=== PATIENT | male | born 1945 | race Hispanic/Latino ===

== ENCOUNTER 2018-03-06 16:49 | Emergency (ER) | payer OTHER ==
--- NOTE | 2018-03-06 18:08 | RAD REPORT ---
EXAM DESCRIPTION: CT - Head Brain Wo Cont - 03/06/2018 5:56 pm CLINICAL HISTORY: Headache, hypertension, declining state COMPARISON: None. TECHNIQUE: Axial 5 mm thick images of the head were obtained without IV contrast. All CT scans are performed using dose optimization technique as appropriate and may include automated exposure control or mA/KV adjustment according to patient size. FINDINGS: No intracranial hemorrhage, mass, edema or shift of mid-line structures. No acute cortical based infarction. No cortical edema or sulcal effacement. Arterial and physiologic calcifications ar e present. Moderate atrophy and chronic ischemic changes are present. No abnormal extra-axial fluid c ollections. Ventricles are in proportion to volume loss. Mastoid air cells and visualized portions of the paranasal sinuses are clear. No acute bony findings. IMPRESSION: No hemorrhage or other acute intracranial finding. Up to moderate severity atrophy and chronic ischemic change. Ventricles are in proportion.
[2018-03-06] MEDS ORDERED: ASPIRIN 81 MG CHEWABLE TABLET ONE (18:46)
[2018-03-06 18:47] LABS: Bicarbonate 27 mEq/L (21-31); Glucose Level 158 mg/dL (65-120); Potassium 3.8 mEq/L (3.6-5.0); Sodium Level 137 mEq/L (135-145)
[2018-03-06 18:53] LABS: ALT/SGPT 24 IU/L (10-60); AST/SGOT 30 IU/L (10-42); Albumin 3.8 g/dL (3.2-5.5); Alkaline Phosphatase 51 IU/L (42-121); BUN Blood Urea Nitrogen 13 mg/dL (6-20); Bilirubin Direct 0.1 mg/dL (0-0.2); Bilirubin Total 0.5 mg/dL (0.3-1.2); Creatine Phosphokinase 210 IU/L (22-269); Magnesium 1.7 mg/dL (1.8-2.5); Protein, Total 7.3 g/dL (6.0-8.3)
[2018-03-06 18:56] LABS: CKMB Creatine Kinase MB 3.7 ng/ml (0.3-4.0)
[2018-03-06 18:57] LABS: Absolute Lymphocytes (CBC) 0.9 K/uL (0.7-4.9); Absolute Monocytes 0.4 K/uL (0.1-1.3); Absolute Neutrophil 6.8 K/uL (1.8-8.0); Basophils % 0.1 % (0-1.3); Eosinophils % 0.1 % (0-4.4); Hematocrit 46.4 % (39.6-49.0); Lymphocytes % 10.6 % (15.3-44.8); MCH 30.2 pg (27.0-35.0); MCV 92.2 fL (80-100); MPV 10.9 fL (7.6-11.3); Monocytes % 5.4 % (3.3-12.3); RBC Red Blood Cell Count 5.04 M/uL (4.33-5.43)
[2018-03-06 18:59] LABS: Protime INR 0.99
[2018-03-06] MEDS ORDERED: cloNIDine HCl 0.1 MG TAB ONE (19:09)
[2018-03-06] MEDS ORDERED: NA CHLORIDE 0.9% 500 ML ONE (19:09)
[2018-03-06] MEDS ORDERED: NA CHLORIDE 0.9% 1,000 ML ONE (19:09)
--- NOTE | 2018-03-06 20:04 | RAD REPORT ---
EXAM DESCRIPTION: RAD - Chest Single View - 03/06/2018 6:04 pm CLINICAL HISTORY: Abdominal pain, nausea, vomiting, shortness of breath COMPARISON: None. TECHNIQUE: AP portable chest image was obtained 1752 hour . FINDINGS: Lung volumes are low. Interstitial markings are prominent. Baseline the patient is unknown . No mass, consolidation or significant failure. Trachea is midline. Heart and vasculature are normal . No measurable pleural effusion and no pneumothorax. No gross bony abnormality seen. No acute aortic findings suspected. IMPRESSION: Prominent interstitial markings without focal process and without significant failure or volume overload. Minimal or mild failure or volume overload could be masked.
[2018-03-06 20:30] LABS: Urine Blood NEGATIVE (NEG); Urine Glucose NEGATIVE (NEG); Urine Protein NEGATIVE (NEG)
--- NOTE | 2018-03-06 21:17 | ER ---
Nurse's Notes [facility] Name: Gonzalez Kirkpatrick Age: 73 yrs Sex: Male : 1945 Arrival Date: 03/06/2018 Time: 16:54 Bed 14 Private MD: None, None Diagnosis: Hypertensive heart disease;Atrioventricular block, second degree Presentation: 03/06 16:56 Presenting complaint: Patient states: Nausea, vomiting decreased energy since Sunday. aj Transition of care: patient was not received from another setting of care. Onset of symptoms was March 03, 2018. Risk Assessment: Do you want to hurt yourself or someone else? Patient reports no desire to harm self or others. Care prior to arrival: None. 16:56 Method Of Arrival: Ambulatory 16:56 Acuity: GOLDY 3 19:15 Initial Sepsis Screen: Does the patient meet any 2 criteria? No. Patient's initial ea sepsis screen is negative. Does the patient have a suspected source of infection? No. Patient's initial sepsis screen is negative. Triage Assessment: 16:57 General: Appears in no apparent distress. comfortable, Behavior is calm, cooperative, aj appropriate for age. Pain: Denies pain. Neuro: Level of Consciousness is awake, alert, obeys commands, Oriented to person, place, time, situation, Appropriate for age. Neuro: Reports headache. Respiratory: Reports cough that is Airway is patent Respiratory effort is even, unlabored, Respiratory pattern is regular, symmetrical. Derm: Skin is intact, is healthy with good turgor, Skin is pink, warm \T\ dry. normal. Historical: - Allergies: 16:57 No Known Allergies; aj - Home Meds: 16:57 None [Active]; aj - PMHx: 16:57 None; aj - PSHx: 16:57 None; aj - Immunization history:: Adult Immunizations up to date. - Social history:: Smoking status: Patient/guardian denies using tobacco. - Ebola Screening: : Patient negative for fever greater than or equal to 101.5 degrees Fahrenheit, and additional compatible Ebola Virus Disease symptoms Patient denies exposure to infectious person Patient denies travel to an Ebola-affected area in the 21 days before illness onset No symptoms or risks identified at this time. Screenin:28 Abuse screen: Denies threats or abuse. Denies injuries from another. Nutritional jl7 screening: No deficits noted. Tuberculosis screening: No symptoms or risk factors identified. Fall Risk IV access (20 points). Total Chapman Fall Scale indicates No Risk (0-24 pts). Assessment: 17:40 General: Appears in no apparent distress. uncomfortable, Behavior is calm, cooperative, jl7 appropriate for age. Pain: Denies pain. Neuro: Level of Consciousness is awake, alert, obeys commands, Oriented to person, place, time, situation. Cardiovascular: Heart tones S1 S2 present Patient's skin is warm and dry. Respiratory: Airway is patent Respiratory effort is even, unlabored, Respiratory pattern is regular, symmetrical. GI: Abdomen is round non-distended. : No signs and/or symptoms were reported regarding the genitourinary system. EENT: No signs and/or symptoms were reported regarding the EENT system. Derm: Skin is pink, warm \T\ dry. Musculoskeletal: No signs and/or symptoms reported regarding the musculoskeletal system. 19:25 General: Appears in no apparent distress. Behavior is calm, cooperative, appropriate ea for age. Pain: Denies pain. Neuro: Level of Consciousness is awake, alert, obeys commands, Oriented to person, place, time, situation. Cardiovascular: Heart tones. Cardiovascular: Patient's skin is warm and dry. Respiratory: Airway is patent Respiratory effort is even, unlabored, Respiratory pattern is regular, symmetrical, Breath sounds are clear bilaterally. GI: Abdomen is round non-distended, Bowel sounds present X 4 quads. : No signs and/or symptoms were reported regarding the genitourinary system. EENT: No signs and/or symptoms were reported regarding the EENT system. Derm: Skin is pink, warm \T\ dry. Musculoskeletal: No signs and/or symptoms reported regarding the musculoskeletal system. 20:19 Reassessment: Patient and/or family updated on plan of care and expected duration. Pain ea level reassessed. Patient is alert, oriented x 3, equal unlabored respirations, skin warm/dry/pink. 20:43 Reassessment: Patient and/or family updated on plan of care and expected duration. Pain ea level reassessed. Provider at bedside updating pt on plan of care. 21:23 Reassessment: Patient and/or family updated on plan of care and expected duration. Pain ea level reassessed. Patient is alert, oriented x 3, equal unlabored respirations, skin warm/dry/pink. Family at bedside. 21:54 Reassessment: Report called to Tashia RUSSELL at [facility]. ea 22:19 Reassessment: Patient and/or family updated on plan of care and expected duration. Pain ea level reassessed. Patient is alert, oriented x 3, equal unlabored respirations, skin warm/dry/pink. [facility] at facility for transfer. Vital Signs: 16:57 BP 199 / 99; Pulse 67; Resp 19; Temp 98.0; Pulse Ox 98% on R/A; Weight 70.31 kg; Height aj 5 ft. 5 in. (165.10 cm); 18:27 BP 175 / 86; Pulse 59; Resp 16; Pulse Ox 96% ; Pain 0/10; jl7 18:44 BP 169 / 88 Supine; Pulse 58; Resp 15; Pulse Ox 97% on R/A; mh5 18:46 BP 196 / 104 Sitting; Pulse 67; Resp 16; Pulse Ox 96% on R/A; mh5 18:48 BP 208 / 98 Standing; Pulse 70; Resp 19; Pulse Ox 97% on R/A; mh5 19:18 BP 182 / 84; Pulse 59; Resp 18; Pulse Ox 97% ; Pain 0/10; ea 19:30 BP 190 / 80 (man/); Pulse 62; Resp 18 S; Pain 0/10; ea 20:15 BP 169 / 71; Pulse 54; Resp 18; Pulse Ox 97% on R/A; Pain 0/10; ea 20:35 BP 142 / 67; Pulse 53; Resp 18; Pulse Ox 99% on R/A; ea 21:00 BP 135 / 87; Pulse 59; Resp 18; Pulse Ox 97% on R/A; Pain 0/10; ea 22:17 BP 164 / 85; Pulse 58; Resp 18; Temp 98(O); Pulse Ox 97% on R/A; Pain 0/10; ea 16:57 Body Mass Index 25.79 (70.31 kg, 165.10 cm) aj ED Course: 16:54 Patient arrived in ED. mr 16:55 None, None is Private Physician. mr 16:57 Triage completed. aj 16:57 Arm band placed on left wrist. Patient placed in an exam room. aj 17:25 Jose Brito PA is PHCP. cp 17:25 Robin Jackson MD is Attending Physician. cp 17:34 Michel Sandoval, RN is Primary Nurse. jl7 17:[address] vm2 17:53 EKG done, by technology architect. reviewed by Jose LEIGH. 3 17:56 CT completed. Patient tolerated procedure well. Patient moved to radiology. vm2 17:56 CT Head Brain wo Cont In Process Unspecified. EDMS 18:01 X-ray completed. Patient tolerated procedure well. Patient moved back from radiology. jb2 18:02 XRAY Chest (1 view) In Process Unspecified. EDMS 18:03 Attending Physician role handed off by Robin Jackson MD cp 18:03 Jose Vincent MD is Attending Physician. cp 18:26 Initial lab(s) drawn, by sc, sent to lab. Inserted saline lock: 22 gauge in right mh5 antecubital area, using aseptic technique. Blood collected. 18:27 Patient has correct armband on for positive identification. Placed in gown. Bed in low mh5 position. Call light in reach. Side rails up X2. Adult w/ patient. Warm blanket given. vehicle monitor technician on. Pulse ox on. NIBP on. 18:28 No provider procedures requiring assistance completed. jl7 19:14 CBC with Diff Sent. [facility] 22:20 Patient transferred, IV remains in place. ea 22:21 Primary Nurse role handed off by Michel Sandoval, RN rg2 22:28 Tanika Gonzalez, RN is Primary Nurse. ea Administered Medications: 18:50 Drug: Aspirin Chewable Tablet 81 mg Route: PO; jl7 19:00 Follow up: Response: No adverse reaction ea 19:30 Drug: cloNIDine 0.2 mg Route: PO; ea 20:00 Follow up: Response: No adverse reaction; Blood pressure is lowered ea 19:30 Drug: NS 0.9% 500 ml Route: IV; Rate: bolus; Site: right antecubital; ea 20:38 Follow up: Response: No adverse reaction; IV Status: Completed infusion; IV Intake: ea 500ml 19:30 Drug: NS 0.9% 1000 ml Route: IV; Rate: 75 ml/hr; Site: right antecubital; ea 22:15 Follow up: IV Status: Infusion continued upon transfer ea Intake: 20:38 IV: 500ml; Total: 500ml. ea Outcome: 21:17 ER care complete, transfer ordered by . cp 22:19 Transferred by ground EMS to [facility], [facility], Transfer form completed. ea 22:19 Condition: stable 22:29 Patient left the ED. ea Signatures: Dispatcher [employer] EDMS Helen Restrepo rg2 Loree Sin, RN Beba Graf NghiateddyAguilra jb2 Jose Brito PA PA cp Martinez, Maria [facility] Michel Sandoval, RN RN jl7 Michelle Shetty 2 Tanika Gonzalez RN Isatu Flower ea 3
--- NOTE | 2018-03-06 21:17 | EDPHYS ---
Physician Documentation [facility] Name: Gonzalez Kirkpatrick Age: 73 yrs Sex: Male : 1945 Arrival Date: 03/06/2018 Time: 16:54 Bed 14 Private MD: None, None ED Physician Jose Vincent HPI: 03/06 17:45 This 73 yrs old Male presents to ER via Ambulatory with complaints of cp Dehydration. 17:45 The patient's problem is reported as weakness, that is generalized. cp 17:45 Onset: The symptoms/episode began/occurred 3 day(s) ago. Duration: The episode is cp continuous. Associated signs and symptoms: Pertinent positives: nausea, intermittent vomiting, Pertinent negatives: abdominal pain, blurred vision, chest pain, shortness of breath. Severity of symptoms: in the emergency department the symptoms are unchanged despite home interventions. Patient's baseline: Neuro: alert and fully oriented, Motor: no deficits, Ambulation: walks without assistance, Speech: normal. Son used as manager strategic marketing, reports patient complains of feeling "dehydrated". Historical: - Allergies: 16:57 No Known Allergies; aj - Home Meds: 16:57 None [Active]; aj - PMHx: 16:57 None; aj - PSHx: 16:57 None; aj - Immunization history:: Adult Immunizations up to date. - Social history:: Smoking status: Patient/guardian denies using tobacco. - Ebola Screening: : Patient negative for fever greater than or equal to 101.5 degrees Fahrenheit, and additional compatible Ebola Virus Disease symptoms Patient denies exposure to infectious person Patient denies travel to an Ebola-affected area in the 21 days before illness onset No symptoms or risks identified at this time. ROS: 17:50 Constitutional: Negative for body aches, chills, fever, poor PO intake. cp 17:50 Eyes: Negative for injury, pain, redness, and discharge. cp 17:50 ENT: Negative for drainage from ear(s), ear pain, sore throat, difficulty swallowing, difficulty handling secretions. 17:50 Cardiovascular: Negative for chest pain, edema, palpitations. 17:50 Respiratory: Positive for cough, with no reported sputum, Negative for shortness of breath, wheezing. 17:50 Abdomen/GI: Positive for nausea, intermittent vomiting, Negative for abdominal pain, anorexia, black/tarry stool, rectal bleeding. Exam: 17:57 Constitutional: The patient appears in no acute distress, alert, awake, cp non-diaphoretic, non-toxic, well developed, well nourished. 17:57 Head/Face: Normocephalic, atraumatic. Eyes: Pupils equal round and reactive to light, cp extra-ocular motions intact. Lids and lashes normal. Conjunctiva and sclera are non-icteric and not injected. Cornea within normal limits. Periorbital areas with no swelling, redness, or edema. ENT: Nares patent. No nasal discharge, no septal abnormalities noted. Tympanic membranes are normal and external auditory canals are clear. Oropharynx with no redness, swelling, or masses, exudates, or evidence of obstruction, uvula midline. Mucous membranes moist. Neck: Trachea midline, no thyromegaly or masses palpated, and no cervical lymphadenopathy. Supple, full range of motion without nuchal rigidity, or vertebral point tenderness. No Meningismus. Chest/axilla: Normal chest wall appearance and motion. Nontender with no deformity. No lesions are appreciated. 17:57 Cardiovascular: Rate: normal, Rhythm: regular, Pulses: Pulses are 2+ in right radial artery and left radial artery. Edema: is not appreciated, JVD: is not appreciated. 17:57 Respiratory: the patient does not display signs of respiratory distress, Respirations: normal, no use of accessory muscles, no retractions, no splinting, no tachypnea, labored breathing, is not present, Breath sounds: are clear throughout, no decreased breath sounds, no stridor, no wheezing. 17:57 Abdomen/GI: Inspection: abdomen appears normal, Bowel sounds: active, all quadrants, Palpation: abdomen is soft and non-tender, in all quadrants, rebound tenderness, is not appreciated, voluntary guarding, is not appreciated, involuntary guarding, is not appreciated. 17:57 Back: pain, is absent, ROM is normal. 17:57 Skin: cellulitis, is not appreciated, no rash present. 17:57 Neuro: Orientation: to person, place \\T\\ time. Mentation: lucid, able to follow commands, Cerebellar function: Romberg testing is negative, normal finger to nose testing, Motor: moves all fours, strength is normal, Sensation: no obvious gross deficits, Gait: is steady. 18:35 Radiologist reports: no acute findings cp Vital Signs: 16:57 BP 199 / 99; Pulse 67; Resp 19; Temp 98.0; Pulse Ox 98% on R/A; Weight 70.31 kg; Height aj 5 ft. 5 in. (165.10 cm); 18:27 BP 175 / 86; Pulse 59; Resp 16; Pulse Ox 96% ; Pain 0/10; jl7 18:44 BP 169 / 88 Supine; Pulse 58; Resp 15; Pulse Ox 97% on R/A; mh5 18:46 BP 196 / 104 Sitting; Pulse 67; Resp 16; Pulse Ox 96% on R/A; mh5 18:48 BP 208 / 98 Standing; Pulse 70; Resp 19; Pulse Ox 97% on R/A; mh5 19:18 BP 182 / 84; Pulse 59; Resp 18; Pulse Ox 97% ; Pain 0/10; ea 19:30 BP 190 / 80 (man/); Pulse 62; Resp 18 S; Pain 0/10; ea 20:15 BP 169 / 71; Pulse 54; Resp 18; Pulse Ox 97% on R/A; Pain 0/10; ea 20:35 BP 142 / 67; Pulse 53; Resp 18; Pulse Ox 99% on R/A; ea 21:00 BP 135 / 87; Pulse 59; Resp 18; Pulse Ox 97% on R/A; Pain 0/10; ea 22:17 BP 164 / 85; Pulse 58; Resp 18; Temp 98(O); Pulse Ox 97% on R/A; Pain 0/10; ea 16:57 Body Mass Index 25.79 (70.31 kg, 165.10 cm) MDM: 17:28 Patient medically screened. cp 18:00 Differential diagnosis: CVA, TIA, metabolic disorder, drug effects. cp 20:45 Data reviewed: vital signs, nurses notes, lab test result(s), EKG, radiologic studies, cp CT scan, plain films. 20:45 Test interpretation: by ED physician or midlevel provider: ECG, plain radiologic cp studies. 20:55 Physician consultation: Jason Hart MD was called at 20:56, was contacted at 20:56, regarding patient's condition, requests transfer. 21:14 Physician consultation: DR Moreno, cardiology \\T\\[facility], will accept patient as cp transfer. 03/06 17:39 Order name: Basic Metabolic Panel; Complete Time: 19:00 cp /13 19:00 Interpretation: Normal except: GLUC 158. cp /13 17:39 Order name: BNP; Complete Time: 19:00 cp /13 20:06 Interpretation: Abnormal: BNP 741. cp /13 17:39 Order name: CBC with Diff; Complete Time: 19:47 cp 13 20:16 Interpretation: Normal except: SHIVA% 83.8; LYM% 10.6. cp /13 17:39 Order name: Ckmb; Complete Time: 19:00 cp 03/06 17:39 Order name: CPK; Complete Time: 19:00 cp 03/06 17:39 Order name: LFT's; Complete Time: 19:00 cp 03/06 17:39 Order name: Magnesium; Complete Time: 19:00 cp 13 20:16 Interpretation: Abnormal: MG 1.7. cp 03/06 17:39 Order name: PT-INR; Complete Time: 19:47 cp 03/06 17:39 Order name: Ptt, Activated; Complete Time: 19:47 cp 03/06 17:39 Order name: Troponin (emerg Dept Use Only); Complete Time: 19:00 cp 13 17:39 Order name: XRAY Chest (1 view); Complete Time: 20:05 cp 13 17:39 Order name: CT Head Brain wo Cont; Complete Time: 18:31 cp /13 19:59 Order name: Urine Dipstick--Ancillary (enter results); Complete Time: 20:31 rg2 03/06 20:31 Interpretation: Normal except: UESTR 1+. cp /13 17:39 Order name: Orthostatics; Complete Time: 18:50 cp /13 17:39 Order name: EKG; Complete Time: 17:39 cp /13 17:39 Order name: Cardiac monitoring; Complete Time: 18:51 cp /13 17:39 Order name: EKG - Nurse/Tech; Complete Time: 18:50 cp /13 17:39 Order name: IV Saline Lock; Complete Time: 18:50 cp /13 17:39 Order name: Labs collected and sent; Complete Time: 18:50 cp /13 17:39 Order name: O2 Per Protocol; Complete Time: 18:50 cp 03/06 17:39 Order name: O2 Sat Monitoring; Complete Time: 18:50 cp 03/06 17:39 Order name: Urine Dipstick-Ancillary (obtain specimen); Complete Time: 20:01 cp 03/06 17:39 Order name: Orthostatics; Complete Time: 19:01 cp 03/06 20:17 Order name: Vital Signs: please update; Complete Time: 20:37 cp 03/06 20:24 Order name: EKG - Nurse/Tech; Complete Time: 20:33 cp 03/06 20:24 Order name: EKG; Complete Time: 20:24 cp Administered Medications: 18:50 Drug: Aspirin Chewable Tablet 81 mg Route: PO; jl7 19:00 Follow up: Response: No adverse reaction ea 19:30 Drug: cloNIDine 0.2 mg Route: PO; ea 20:00 Follow up: Response: No adverse reaction; Blood pressure is lowered ea 19:30 Drug: NS 0.9% 500 ml Route: IV; Rate: bolus; Site: right antecubital; ea 20:38 Follow up: Response: No adverse reaction; IV Status: Completed infusion; IV Intake: ea 500ml 19:30 Drug: NS 0.9% 1000 ml Route: IV; Rate: 75 ml/hr; Site: right antecubital; ea 22:15 Follow up: IV Status: Infusion continued upon transfer ea Disposition: 03/07 07:29 Co-signature as Attending Physician, Jose Vincent MD I agree with the assessment and leonor plan of care. Disposition: 03/06/18 21:17 Transfer ordered to [facility]. Diagnosis are Hypertensive heart disease, Atrioventricular block, second degree. - Reason for transfer: Higher level of care. - Accepting physician is DR Moreno. - Condition is Stable. - Problem is new. - Symptoms have worsened. Signatures: Dispatcher [employer] EDLoree uH RN RN aj Anderson, Corey, MD MD cha Page, Corey, PA PA cp Leal, Jahala, RN RN jlTanika Dinh RN RN ea Corrections: (The following items were deleted from the chart) 03/06 22:29 21:17 03/06/2018 21:17 Transfer ordered to [facility]. Diagnosis is ea Hypertensive heart disease; Atrioventricular block, second degree. Reason for transfer: Higher level of care. Accepting physician is DR Moreno. Condition is Stable. Problem is new. Symptoms have worsened. cp
--- NOTE | 2018-03-06 23:00 | EKG ---
Test Date: 2018-03-06 Test Time: 17:45:48 Pediatric Oncology Nurse: HELADIO MEASUREMENT RESULTS: Intervals: Rate: 61 DC: 292 QRSD: 122 QT: 462 QTc: 465 [place]: P: 41 DC: 292 QRS: -43 T: 94 INTERPRETIVE STATEMENTS: Sinus rhythm with 1st degree AV block Left axis deviation Right bundle branch block Abnormal ECG No previous ECG available for comparison Electronically Signed On 03-06-18 22:59:41 CDT by Jason Hart
--- NOTE | 2018-03-07 08:26 | EKG ---
Test Date: 2018-03-06 Test Time: 20:29:08 Hydro Plant Operator: LOLIS MEASUREMENT RESULTS: Intervals: Rate: 48 UT: QRSD: 134 QT: 516 QTc: 460 [place]: P: 39 UT: QRS: -40 T: 145 INTERPRETIVE STATEMENTS: Sinus bradycardia with 2nd degree AV block (Mobitz I) Left axis deviation Right bundle branch block T wave abnormality, consider lateral ischemia Abnormal ECG Compared to ECG 03/06/2018 17:45:48 T-wave abnormality now present Possible ischemia now present Sinus rhythm no longer present First degree AV block no longer present Electronically Signed On 03-07-18 08:24:43 CDT by Juan Purcell
== END 2018-03-06 22:29 | disposition short-term general hospital (02) ==
LOC: ER 16:49
DX: I11.9 Hypertensive heart disease without heart failure (principal); I44.1 Atrioventricular block, second degree; R05 Cough
CPT/HCPCS: 36415; 70450; 71045; 80048; 80076; 81003; 82550; 82553; 83735; 83880; 84484; 85025; 85610; 85730; 93005; J7030; 96360; 96361; 99285